=== PATIENT | female | born 1960 | race Caucasian/White ===

== ENCOUNTER 2018-03-26 19:05 | Emergency (ER) | payer OTHER ==
--- NOTE | 2018-03-26 19:17 | ED Physician Documentation ---
Headache - HISTORIAN Historian: patient - HPI Stated Complaint: migraine Chief Complaint: Headache Onset: hours (3) Timing: abrupt New Gradual Onset: Yes Exposure To: other (she feels it is the exposure to the heat and humidity ) Severity: mild Quality: similar to previous Associated Symptoms: sensitivity to light, nausea, dizziness. denies: fever, chills, problems with vision, vomiting, neck pain, speech problems, weakness Preceding Symptoms: denies: visual disturbance Exacerbated By: light, noise Further Comments: yes (she reports headache she has had in the past similar migraine. She tried Tylenol right before coming to the ER. She has no improvement from the Tylenol. She states she would just like the duladid and benadryl. She does not wish "for a bunch of labs and other tests" . She is also asking when she can get her meds so she can leave. She is currently on meds at home for leukemia and she feels she toleates this well. She states she is not currently on potassium due to a recent high level . She is not sure why she takes lasix. She denies any head injury) Last known Well Code/Unknown Code: Unknown - ROS NEURO/PSYCH: denies: confusion, anxiety, depression, fainting EYES/ENT: denies: difficulty swallowing, sinus pain MS/SKIN/LYMPH: denies: muscle aches, rash - PAST HX Medical History: pulmonary embolism, other (leukemia ) Surgical History: noncontributory, cholecystectomy, tonsillectomy Immunizations: UTD Allergies/Adverse Reactions: Allergies Allergy/AdvReac Type Severity Reaction Status Date / Time ketorolac [From Toradol] Allergy Severe Anaphylaxis Verified 03/26/18 19:35 levofloxacin [From Levaquin] Allergy Intermediate Rash Verified 03/26/18 19:35 ciprofloxacin [From Cipro] Allergy Verified 03/26/18 19:35 droperidol [From Inapsine] AdvReac Muscle Pain Verified 03/26/18 19:35 metoclopramide [From Reglan] AdvReac Muscle Pain Verified 03/26/18 19:35 prochlorperazine AdvReac Muscle Pain Verified 03/26/18 19:35 [From Compazine] promethazine [From Phenergan] AdvReac Muscle Pain Verified 03/26/18 19:35 - SOCIAL HX Smoking History: cigarettes Alcohol Use: none Drug Use: none - Family HX Family History: none - REVIEWED ASSESSMENTS Nursing Assessment Reviewed: Yes Vitals Reviewed: Yes ED Results Lab/Radiology - Orders Orders: ED Orders Category Date Time Status Place IV Lock 1T Care 03/26/18 19:19 Active CBC/PLATELET/DIFF Routine Lab 03/26/18 Ordered CMP Routine Lab 03/26/18 Ordered 0.9 % Sodium Chloride [Normal Saline] 1,000 ml Med 03/26/18 19:30 Ordered IV Q10H Headache Physical Exam - EXAM General Appearance: no acute distress, alert, mild distress EENT: no facial swelling, eyes nml inspection, PERRL, nml ENT. No: pain over sinuses Neck: normal inspection, thyroid normal Respiratory: no resp distress, chest non-tender, breath sounds normal CVS: reg. rate & rhythm, heart sounds nml Abdomen: non-tender, nml bowel sounds, no distention Skin: color nml, no rash Extremitites: non-tender, normal range of motion, no evidence of injury, no edema - NEURO/PSYCH Higher Functions: alert, oriented x3, nml speech, mood/affect nml Cranial: nml as tested, no evidence of acute CVA Cerebellar: nml as tested Sensorimotor: motor nml, sensation nml Discharge Clincal Impression: Migraine Qualifiers: Migraine type: unspecified Status migrainosus presence: without status migrainosus Intractability: not intractable Qualified Code(s): G43.909 - Migraine, unspecified, not intractable, without status migrainosus Referrals: Primary Doctor,No [Primary Care Provider] - 2 Days Disposition: AGAINST MEDICAL ADVICE Decision to Admit: NO Date of Decison to Admit: 03/26/18 Decision Time: 19:44
[2018-03-26] MEDS ORDERED: 0.9 % SODIUM CHLORIDE 1,000 ML IV SCH (19:30)
[2018-03-26 21:45] VITALS: BP 129/85
== END 2018-03-26 19:44 | disposition left against medical advice (07) ==
LOC: ED 19:05
DX: G43.909 Migraine, unspecified, not intractable, without status migrainosus (principal); Z53.9 Procedure and treatment not carried out, unspecified reason
CPT/HCPCS: 99282